=== PATIENT | male | born 1950 ===

== ENCOUNTER → 2020-12-05 | Outpatient (REF) ==
--- NOTE | 2020-12-05 10:25 | REP ---
INDICATION: SOB. COMPARISON: None. TECHNIQUE: PA and lateral FINDINGS: A MediPort device is seen on the right the tip of which is in the superior vena cava. There is cardiomegaly. There is thoracic aortic tortuosity. There are a few bibasilar opacities. There is slight left CP angle blunting. The osseous structures are within normal limits. IMPRESSION: 1. Cardiomegaly 2. MediPort device as described above 3. 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 Follow-up is recommended. <Electronically signed by Luis Mejia > 12/05/20 1021
== END ==
LOC: M PLAIMG 09:56
PROVIDERS: ATTEND Internal Medicine
DX: R06.02 Shortness of breath (principal)